=== PATIENT | female | born 1970 | race Caucasian/White ===

== ENCOUNTER 2019-11-14 16:51 | Outpatient (CLI) | payer BC ==
--- NOTE | 2019-11-14 17:22 | RAD ---
EXAM: XR Lumbar Spine 2 Or 3 View PROVIDED CLINICAL HISTORY: Lower back pain with pain radiating down left leg. COMPARISON: None FINDINGS: There are 5 nonrib-bearing lumbar-type vertebral bodies. Vertebral body heights are within normal roberts its. No fracture or subluxation is seen involving the lumbar spine. Prominent osteophytes are seen anteriorly at the T12-L1 level. Mild degenerative changes are seen at the lumbosacral junction. There are calcifications seen just laterally and anteriorly on the left at the level of the T12 vertebral body which are unable to be further localized or evaluated on this exam. IMPRESSION: 1. Calcifications laterally on the left and just anterior to the level of T12 vertebral body which ar e unable to be further evaluated. Calcifications do not definitely typical appearance of vascular calcification; although, this is a possibility. Follow-up CT scan may be helpful for further evaluati on. 2. No acute findings involving the lumbar spine. Given history of radicular symptoms, MRI lumbar spin e would be helpful for further evaluation.
== END 2019-11-14 16:52 | disposition home or self-care (01) ==
LOC: SCSRAD 16:51
PROVIDERS: ATTEND Psychiatry & Neurology Neurology
DX: M54.30 Sciatica, unspecified side (principal); R93.7 Abnormal findings on diagnostic imaging of other parts of musculoskeletal system
CPT/HCPCS: 72100